=== PATIENT | female | born 1995 | race Hispanic/Latino ===

== ENCOUNTER 2018-05-03 11:36 | Emergency (ER) | payer MEDICAID ==
[2018-05-03] MEDS ORDERED: DEXAMETHASONE SOD PHOSPHATE 10MG/ML 1ML VIAL ONE (13:49)
[2018-05-03] MEDS ORDERED: ACETAMINOPHEN EXTRA STRENGTH 500 MG TABLET ONE (13:50)
== END 2018-05-03 14:41 | disposition home or self-care (01) ==
LOC: EDH 11:36
DX: M25.531 Pain in right wrist (principal); M25.431 Effusion, right wrist
CPT/HCPCS: 29125; 96372; 99283; J1100